=== PATIENT | female | born 1950 | race Caucasian/White ===

== ENCOUNTER → 2016-12-22 | Outpatient (CLI) | payer OTHER, MEDICARE | END | disposition home or self-care (01) | LOC: NUC 12-15 08:00 | DX: M16.12 Unilateral primary osteoarthritis, left hip (principal); M17.11 Unilateral primary osteoarthritis, right knee; M19.079 Primary osteoarthritis, unspecified ankle and foot; R93.7 Abnormal findings on diagnostic imaging of other parts of musculoskeletal system; M41.25 Other idiopathic scoliosis, thoracolumbar region | CPT/HCPCS: 78315; A9503 ==

== ENCOUNTER 2017-12-25 11:34 | Inpatient (IN) | payer OTHER, MEDICARE ==
[~2017-12-25] VITALS: Ht 170.2 cm; Wt 114.4 kg
[2017-12-25 13:16] LABS: HEMOGLOBIN 12.8 G/DL (11.9-15.5); MCH 27.1 PG (29.0-34.0); MCV 84.7 FL (83-99); PLATELET COUNT 230 K/uL (156-360); RBC DIS.WIDTH-CV 17.5 % (11.8-14.6); RBC DIS.WIDTH-SD 53.2 % (39-53); RED BLOOD COUNT 4.72 M/uL (3.80-5.20); WHITE BLOOD COUNT 12.5 K/uL (4.1-10.2)
[2017-12-25 13:24] LABS: CHLORIDE 106 mEq/L (99-109); POTASSIUM 3.7 mEq/L (3.7-5.4); SODIUM 140 mEq/L (136-147)
[2017-12-25 13:26] LABS: GLUCOSE 114 mg/dL (70-99)
[2017-12-25 13:30] LABS: CREATININE 0.9 mg/dL (0.6-1.3); GFR ESTIMATE (CALCULATED) > 59 mL/min/
[2017-12-25 13:31] LABS: UREA NITROGEN (BUN) 12 mg/dL (9-23)
[2017-12-25 13:41] LABS: TROP-I INTERPRETATION NEGATIVE; TROPONIN-I < 0.01 ng/mL (0.0-0.30)
[2017-12-25] MEDS ORDERED: ESTRACE42.5 GM VG (16:38)
[2017-12-25] MEDS ORDERED: CELEBREX200 MG PO (16:38)
[2017-12-25] MEDS ORDERED: POLYMYXIN B-TMP10 ML LEFT EYE (16:38)
[2017-12-25] MEDS ORDERED: TRAMADOL HCL50 MG PO (16:38)
[2017-12-25] MEDS ORDERED: GABAPENTIN300 MG PO (16:38)
[2017-12-25] MEDS ORDERED: PRILOSEC OTC20 MG PO ×2 (16:39)
[2017-12-25] MEDS ORDERED: AMLODIPINE BESYL5 MG PO (16:39)
[2017-12-25 17:40] VITALS: BP 132/63
[2017-12-25 18:51] VITALS: BP 144/68
[2017-12-25 21:15] LABS: TROP-I INTERPRETATION NEGATIVE; TROPONIN-I 0.01 ng/mL (0.0-0.30)
[2017-12-25 22:38] VITALS: BP 140/68
[2017-12-26 02:51] LABS: TROP-I INTERPRETATION NEGATIVE; TROPONIN-I < 0.01 ng/mL (0.0-0.30)
[2017-12-26 03:54] VITALS: BP 142/65
[2017-12-26 07:45] VITALS: BP 152/68
[2017-12-26 08:29] LABS: HEMATOCRIT 41.3 % (36.0-46.0); HEMOGLOBIN 12.8 G/DL (11.9-15.5); MCH 26.6 PG (29.0-34.0); MCV 85.9 FL (83-99); PLATELET COUNT 267 K/uL (156-360); RBC DIS.WIDTH-CV 17.9 % (11.8-14.6); RBC DIS.WIDTH-SD 55.4 % (39-53); RED BLOOD COUNT 4.81 M/uL (3.80-5.20)
[2017-12-26 08:52] LABS: CHLORIDE 105 MEQ/L (99-109); GFR ESTIMATE (CALCULATED) 59 mL/min/; GLUCOSE 125 mg/dL (70-99); POTASSIUM 3.9 MEQ/L (3.7-5.4); SODIUM 138 MEQ/L (136-147); UREA NITROGEN (BUN) 10 mg/dL (9-23)
[2017-12-26 09:21] LABS: TROP-I INTERPRETATION NEGATIVE; TROPONIN-I < 0.01 ng/mL (0.0-0.30)
[2017-12-26 15:00] VITALS: BP 141/67
[2017-12-26 18:46] VITALS: BP 151/68
[2017-12-26 23:08] VITALS: BP 138/63
[2017-12-27 03:24] VITALS: BP 133/63
[2017-12-27 07:15] VITALS: BP 148/70
[2017-12-27 11:00] VITALS: BP 135/65
[2017-12-27] MEDS ORDERED: ELIQUIS5 MG PO ×2 (12:17→14:52)
== END 2017-12-27 13:40 | disposition home or self-care (01) | DRG 299 ==
LOC: EME 11:34 → EDOF 15:57 → 5EAST 15:57 → ENRESERV 16:00 → 5EAST 17:12
PROVIDERS: Emergency Medicine; Hospitalist
DX: I82.411 Acute embolism and thrombosis of right femoral vein (principal); I26.99 Other pulmonary embolism without acute cor pulmonale; K21.9 Gastro-esophageal reflux disease without esophagitis; E66.9 Obesity, unspecified; I34.0 Nonrheumatic mitral (valve) insufficiency; M41.9 Scoliosis, unspecified; Z79.01 Long term (current) use of anticoagulants; Z96.642 Presence of left artificial hip joint; Z68.39 Body mass index [BMI] 39.0-39.9, adult; I51.9 Heart disease, unspecified; M19.90 Unspecified osteoarthritis, unspecified site; Z87.01 Personal history of pneumonia (recurrent); I10 Essential (primary) hypertension
CPT/HCPCS: 71275; 80048; 83880; 84484; 85027; 93005; 99281; 99284; J1650

== ENCOUNTER 2018-03-08 14:50 | Emergency (ER) | payer OTHER, MEDICARE ==
[~2018-03-08] VITALS: Ht 167.6 cm; Wt 116.4 kg
[~2018-03-08 14:50] MED LIST: AMLODIPINE BESYL5 MG PO; CELEBREX200 MG PO; ELIQUIS5 MG PO; ESTRACE42.5 GM VG; GABAPENTIN300 MG PO; POLYMYXIN B-TMP10 ML LEFT EYE; PRILOSEC OTC20 MG PO; TRAMADOL HCL50 MG PO
[2018-03-08] MEDS ORDERED: LEVAQUIN750 MG PO (16:20)
[2018-03-08 16:37] VITALS: BP 144/63
== END 2018-03-08 16:37 | disposition home or self-care (01) ==
LOC: EME 14:50
DX: J32.9 Chronic sinusitis, unspecified (principal); I49.3 Ventricular premature depolarization; I44.4 Left anterior fascicular block; R94.31 Abnormal electrocardiogram [ECG] [EKG]; I10 Essential (primary) hypertension; K21.9 Gastro-esophageal reflux disease without esophagitis; Z86.718 Personal history of other venous thrombosis and embolism; Z87.01 Personal history of pneumonia (recurrent); Z86.79 Personal history of other diseases of the circulatory system; Z87.19 Personal history of other diseases of the digestive system; Z96.642 Presence of left artificial hip joint; Z90.49 Acquired absence of other specified parts of digestive tract
CPT/HCPCS: 93005; 99281; 99284